=== PATIENT | male | born 1955 | race Caucasian/White ===

== ENCOUNTER 2018-08-14 21:23 | Inpatient (IN) ==
[2018-08-14] MEDS ORDERED: Ipratropium/Albuterol Neb 3 ML IH ONE (21:34)
[2018-08-14] MEDS ORDERED: methylPREDNISolone 125 MG/2 ML VIAL IVP ONE (21:35)
--- NOTE | 2018-08-14 21:41 | Emergency Department Note ---
Disposition Clinical Impression: Acute exacerbation of chronic obstructive airways disease Disposition: Admitted As Inpatient Condition: Fair Time of Disposition: 03:27 General Adult HPI - General Stated complaint: sob Time Seen by Provider: 08/14/18 21:34 Nursing Notes Reviewed: Yes Vital Signs Reviewed: Yes - History of Present Illness HPI Narrative: 63-year-old male with end-stage COPD, on vent with mask at nighttime with 4 L of oxygen presents to the emergency department via EMS with concern for shortness of breath and chest tightness. EMS states they increased his oxygen from 5-8 L en route and had oxygen saturation of 97-100% on it. He was initially tachycardic with a heart rate of 127. Patient states that he is on azithromycin chronically. Reports that he is on steroids recently as well. He denies any fever, does endorse sputum production. Denies any new abdominal pain or nausea, vomiting. He states that it feels like an exacerbation of this COPD. - Related Data Home Medications Medication Instructions Recorded Confirmed Albuterol Sulfate [Proair 90 mcg IH Q4HR 08/15/18 08/15/18 Respiclick] Aspirin [Lo-Dose Aspirin EC] 81 mg PO DAILY 08/15/18 08/15/18 Atorvastatin [Lipitor] 40 mg PO HS 08/15/18 08/15/18 Azithromycin [Zithromax] 250 mg PO DAILY 08/15/18 08/15/18 Budesonide/Formoterol 160/4.5 2 puff IH BIDR 08/15/18 08/15/18 [Symbicort 160/4.5] Dextromethorphan HBr [Tussin Cough] 15 mg PO BID 08/15/18 08/15/18 Esomeprazole Magnesium [Nexium] 40 mg PO DAILY 08/15/18 08/15/18 Fluticasone Propionate Nasal 50 mcg NS BID 08/15/18 08/15/18 [Flonase] GuaiFENesin ER [Mucinex] 600 mg PO BID 08/15/18 08/15/18 Ipratropium/Albuterol Neb [Duoneb] 3 ml IH Q4HR 08/15/18 08/15/18 Loratadine [Claritin] 10 mg PO DAILY 08/15/18 08/15/18 Melatonin 10 mg PO HS 08/15/18 08/15/18 Montelukast [Singulair] 10 mg PO HS 08/15/18 08/15/18 Ondansetron [Zofran ODT] 8 mg SL Q8H 08/15/18 08/15/18 Spiriva Respimat 2.5 mcg IH BID 08/15/18 08/15/18 Allergies Allergy/AdvReac Type Severity Reaction Status Date / Time clarithromycin [From Biaxin] Allergy Hives Verified 08/14/18 21:43 Penicillins Allergy Hives Verified 08/14/18 21:43 All systems ED: reviewed and negative except as stated. Review of Systems: As Per HPI Constitutional: Denies: fever Respiratory: Reports: cough, dyspnea, sputum production Gastrointestinal: Denies: abdominal pain, nausea, vomiting Past Medical History - Past Medical History Attestation: Yes The following information was validated with the patient. Medical history: Reports: COPD Physical Exam - General Limitations: no limitations General appearance: alert, in no apparent distress - Head Head exam: normocephalic - Eye Eye exam: Present: EOMI - ENT ENT exam: mucous membranes moist - Neck Neck exam: Present: trachea midline - Chest Chest inspection: Present: symmetric chest wall rise - Respiratory Respiratory exam: Present: prolonged expiratory phase, other (Decreased breath sounds bilaterally) - Cardiovascular Cardiovascular exam: Present: normal rhythm, tachycardia - Abdominal Exam Abdominal exam: Present: soft, Non-Tender. Absent: distention, guarding, rebound, rigidity - Extremities Exam Extremities exam: Present: normal capillary refill - Back Exam Back exam: Present: full ROM - Neurological Exam Neurological exam: Present: alert, oriented X3 - Psychiatric Psychiatric exam: Present: normal affect, normal mood - Skin Skin exam: Present: warm, dry, intact, normal color. Absent: rash Course Vital Signs Temperature 97.7 F 08/14/18 21:29 Pulse Rate 115 08/14/18 21:29 Respiratory Rate 20 08/14/18 21:29 Blood Pressure 121/84 08/14/18 21:29 O2 Sat by Pulse Oximetry 100 08/14/18 21:29 Temperature 97.7 F 08/14/18 21:29 Pulse Rate 92 08/15/18 02:00 Respiratory Rate 20 08/15/18 01:00 Blood Pressure 103/79 08/15/18 02:00 O2 Sat by Pulse Oximetry 97 08/15/18 02:00 Oxygen Delivery Oxygen Delivery Bipap,Ventilator Medical Decision Making - MDM Narrative Medical decision making narrative: 63-year-old male presents emergency department with concerns for COPD exacerbation. Patient currently stable on his home vent settings. He has decreased breath sounds bilaterally with prolonged expiratory phase and tachycardic. We will give DuoNeb's, steroids obtain chest x-ray, ECG, troponin. Patient felt much better after administration of DuoNeb's. Had a decreased work of breathing and increased aeration. He was on his baseline oxygen afterwards. ECG did not reveal any ischemic ST changes. Troponin was negative. Chest x-ray were no cardiopulmonary abnormality. We do not start and Micronase on this patient as he did not have a leukocytosis, no evidence of pneumonia on chest x- ray, afebrile. Heart rate improved significantly throughout his stay. There was 100 at time of admission. Patient minute to Dr. Valladares for COPD exacerbation in this end-stage COPD patient. Discussion at bedside with family, they agreed with plan. Patient hemodynamically stable time of admission. Chest X-Ray 08/14/18 21:35 IMPRESSION: No acute abnormality detected. D/ / Jesús Collado MD / Jesús Collado MD Interpreting Provider: Jesús Collado MD - Lab Data Result diagrams: 08/14/18 22:05 08/14/18 23:26 Lab Results 08/14/18 08/14/18 08/14/18 Range/Units 22:05 22:05 22:05 WBC 6.0 (4.3-11.1) K/mcL RBC 4.24 (4.19-5.50) M/mcL Hgb 13.4 (12.9-16.9) g/dL Hct 40.4 (37.5-50.1) % MCV 95.3 (83.0-100.0) fL MCH 31.6 (28.0-33.3) pg MCHC 33.2 (31.6-35.5) g/dL RDW 12.7 (11.5-14.5) % Plt Count 149 (140-400) K/mcL MPV 9.8 (9.4-12.4) fL Immature Gran % 1.2 (0-4) % Seg Neutrophils % 61.0 % Lymphocytes % 22.6 % Monocytes % 13.5 % Eosinophils % 1.0 % Basophils % 0.7 % Neutrophils # 3.7 (1.6-8.9) K/mcL Lymphocytes # 1.4 (0.6-4.6) K/mcL Monocytes # 0.8 (0.0-1.3) K/mcL Eosinophils # 0.1 (0.0-0.6) K/mcL Basophils # 0.0 (0.0-0.2) K/mcL Sodium (136-145) mEq/L Potassium (3.5-5.1) mEq/L Chloride (98-107) mEq/L Carbon Dioxide (23-29) mEq/L BUN (8-23) mg/dL Creatinine (0.70-1.30) mg/dL Est GFR ( Amer) (> 60) Est GFR (Non-Af Amer) (> 60) BUN/Creatinine Ratio (6-26) Glucose (70-105) mg/dL Calculated Osmolality (280-300) Calcium (8.6-10.3) mg/dL Troponin I < 0.03 (< 0.04) ng/mL B-Natriuretic Peptide 43 (Less than 100) pg/mL 08/14/18 Range/Units 23:26 WBC (4.3-11.1) K/mcL RBC (4.19-5.50) M/mcL Hgb (12.9-16.9) g/dL Hct (37.5-50.1) % MCV (83.0-100.0) fL MCH (28.0-33.3) pg MCHC (31.6-35.5) g/dL RDW (11.5-14.5) % Plt Count (140-400) K/mcL MPV (9.4-12.4) fL Immature Gran % (0-4) % Seg Neutrophils % % Lymphocytes % % Monocytes % % Eosinophils % % Basophils % % Neutrophils # (1.6-8.9) K/mcL Lymphocytes # (0.6-4.6) K/mcL Monocytes # (0.0-1.3) K/mcL Eosinophils # (0.0-0.6) K/mcL Basophils # (0.0-0.2) K/mcL Sodium 141 (136-145) mEq/L Potassium 4.2 (3.5-5.1) mEq/L Chloride 105 (98-107) mEq/L Carbon Dioxide 30 H (23-29) mEq/L BUN 13 (8-23) mg/dL Creatinine 0.57 L (0.70-1.30) mg/dL Est GFR ( Amer) > 60 (> 60) Est GFR (Non-Af Amer) > 60 (> 60) BUN/Creatinine Ratio 23 (6-26) Glucose 104 (70-105) mg/dL Calculated Osmolality 292 (280-300) Calcium 9.3 (8.6-10.3) mg/dL Troponin I (< 0.04) ng/mL B-Natriuretic Peptide (Less than 100) pg/mL - EKG Data EKG #1 EKG attestation: Yes I reviewed and interpreted this EKG. EKG results narrative: 21:41 Heart rate 106 bpm, NH interval 144 ms, QRS duration 90 ms, QT 337 seconds, right axis deviation. Sinus tachycardia with occasional PVC. No ischemic ST changes.
[2018-08-14 22:16] LABS: Basophils % 0.7 %; Eosinophils # 0.1 K/mcL (0.0-0.6); Hematocrit 40.4 % (37.5-50.1); Hemoglobin 13.4 g/dL (12.9-16.9); Immature Granulocytes % 1.2 % (0-4); Lymphocytes # 1.4 K/mcL (0.6-4.6); Lymphocytes % 22.6 %; Mean Corpuscular HGB Conc 33.2 g/dL (31.6-35.5); Mean Corpuscular Hemoglobin 31.6 pg (28.0-33.3); Mean Corpuscular Volume 95.3 fL (83.0-100.0); Mean Platelet Volume 9.8 fL (9.4-12.4); Monocytes # 0.8 K/mcL (0.0-1.3); Monocytes % 13.5 %; Neutrophils # 3.7 K/mcL (1.6-8.9); Platelet Count 149 K/mcL (140-400); Red Blood Count 4.24 M/mcL (4.19-5.50); Red Cell Distribution Width 12.7 % (11.5-14.5)
[2018-08-14] MEDS ORDERED: 0.9 % Sodium Chloride 1,000 ML IVC ONE (23:42)
--- NOTE | 2018-08-14 23:44 | Emergency Department Note ---
Disposition Clinical Impression: Acute exacerbation of chronic obstructive airways disease Disposition: Admitted As Inpatient Condition: Fair Time of Disposition: 03:27 General Adult HPI - General Chief complaint: ED Shortness of Breath/Dyspnea Stated complaint: sob Time Seen by Provider: 08/14/18 21:34 Source: patient, EMS Limitations: no limitations Nursing Notes Reviewed: Yes Vital Signs Reviewed: Yes - History of Present Illness Pain Scale: 0 - Related Data Home Medications Medication Instructions Recorded Confirmed Albuterol Sulfate [Proair 90 mcg IH Q4HR 08/15/18 08/15/18 Respiclick] Aspirin [Lo-Dose Aspirin EC] 81 mg PO DAILY 08/15/18 08/15/18 Atorvastatin [Lipitor] 40 mg PO HS 08/15/18 08/15/18 Azithromycin [Zithromax] 250 mg PO DAILY 08/15/18 08/15/18 Budesonide/Formoterol 160/4.5 2 puff IH BIDR 08/15/18 08/15/18 [Symbicort 160/4.5] Dextromethorphan HBr [Tussin Cough] 15 mg PO BID 08/15/18 08/15/18 Esomeprazole Magnesium [Nexium] 40 mg PO DAILY 08/15/18 08/15/18 Fluticasone Propionate Nasal 50 mcg NS BID 08/15/18 08/15/18 [Flonase] GuaiFENesin ER [Mucinex] 600 mg PO BID 08/15/18 08/15/18 Ipratropium/Albuterol Neb [Duoneb] 3 ml IH Q4HR 08/15/18 08/15/18 Loratadine [Claritin] 10 mg PO DAILY 08/15/18 08/15/18 Melatonin 10 mg PO HS 08/15/18 08/15/18 Montelukast [Singulair] 10 mg PO HS 08/15/18 08/15/18 Ondansetron [Zofran ODT] 8 mg SL Q8H 08/15/18 08/15/18 Spiriva Respimat 2.5 mcg IH BID 08/15/18 08/15/18 Allergies Allergy/AdvReac Type Severity Reaction Status Date / Time clarithromycin [From Biaxin] Allergy Hives Verified 08/14/18 21:43 Penicillins Allergy Hives Verified 08/14/18 21:43 Constitutional: Denies: fever Respiratory: Reports: cough, dyspnea, sputum production Gastrointestinal: Denies: abdominal pain, nausea, vomiting Past Medical History - Past Medical History Medical history: Reports: COPD Psychiatric history: Reports: no psych history - Social History Smoking Status: Current every day smoker Alcohol use: Reports: none Drug use: Reports: none Physical Exam - General Limitations: no limitations General appearance: alert, in no apparent distress Course Vital Signs Temperature 97.7 F 08/14/18 21:29 Pulse Rate 115 08/14/18 21:29 Respiratory Rate 20 08/14/18 21:29 Blood Pressure 121/84 08/14/18 21:29 O2 Sat by Pulse Oximetry 100 08/14/18 21:29 Temperature 97.7 F 08/14/18 21:29 Pulse Rate 92 08/15/18 02:00 Respiratory Rate 18 08/15/18 03:22 Blood Pressure 103/79 08/15/18 02:00 O2 Sat by Pulse Oximetry 98 08/15/18 03:22 Oxygen Delivery Oxygen Delivery Bipap,Ventilator Medical Decision Making - Lab Data Lab results reviewed: Yes I reviewed the patient's lab results. Result diagrams: 08/14/18 22:05 08/14/18 23:26 Lab Results 08/14/18 08/14/18 08/14/18 Range/Units 22:05 22:05 22:05 WBC 6.0 (4.3-11.1) K/mcL RBC 4.24 (4.19-5.50) M/mcL Hgb 13.4 (12.9-16.9) g/dL Hct 40.4 (37.5-50.1) % MCV 95.3 (83.0-100.0) fL MCH 31.6 (28.0-33.3) pg MCHC 33.2 (31.6-35.5) g/dL RDW 12.7 (11.5-14.5) % Plt Count 149 (140-400) K/mcL MPV 9.8 (9.4-12.4) fL Immature Gran % 1.2 (0-4) % Seg Neutrophils % 61.0 % Lymphocytes % 22.6 % Monocytes % 13.5 % Eosinophils % 1.0 % Basophils % 0.7 % Neutrophils # 3.7 (1.6-8.9) K/mcL Lymphocytes # 1.4 (0.6-4.6) K/mcL Monocytes # 0.8 (0.0-1.3) K/mcL Eosinophils # 0.1 (0.0-0.6) K/mcL Basophils # 0.0 (0.0-0.2) K/mcL Sodium (136-145) mEq/L Potassium (3.5-5.1) mEq/L Chloride (98-107) mEq/L Carbon Dioxide (23-29) mEq/L BUN (8-23) mg/dL Creatinine (0.70-1.30) mg/dL Est GFR ( Amer) (> 60) Est GFR (Non-Af Amer) (> 60) BUN/Creatinine Ratio (6-26) Glucose (70-105) mg/dL Calculated Osmolality (280-300) Calcium (8.6-10.3) mg/dL Troponin I < 0.03 (< 0.04) ng/mL B-Natriuretic Peptide 43 (Less than 100) pg/mL 08/14/18 Range/Units 23:26 WBC (4.3-11.1) K/mcL RBC (4.19-5.50) M/mcL Hgb (12.9-16.9) g/dL Hct (37.5-50.1) % MCV (83.0-100.0) fL MCH (28.0-33.3) pg MCHC (31.6-35.5) g/dL RDW (11.5-14.5) % Plt Count (140-400) K/mcL MPV (9.4-12.4) fL Immature Gran % (0-4) % Seg Neutrophils % % Lymphocytes % % Monocytes % % Eosinophils % % Basophils % % Neutrophils # (1.6-8.9) K/mcL Lymphocytes # (0.6-4.6) K/mcL Monocytes # (0.0-1.3) K/mcL Eosinophils # (0.0-0.6) K/mcL Basophils # (0.0-0.2) K/mcL Sodium 141 (136-145) mEq/L Potassium 4.2 (3.5-5.1) mEq/L Chloride 105 (98-107) mEq/L Carbon Dioxide 30 H (23-29) mEq/L BUN 13 (8-23) mg/dL Creatinine 0.57 L (0.70-1.30) mg/dL Est GFR ( Amer) > 60 (> 60) Est GFR (Non-Af Amer) > 60 (> 60) BUN/Creatinine Ratio 23 (6-26) Glucose 104 (70-105) mg/dL Calculated Osmolality 292 (280-300) Calcium 9.3 (8.6-10.3) mg/dL Troponin I (< 0.04) ng/mL B-Natriuretic Peptide (Less than 100) pg/mL - Radiology Data Radiology results reviewed: Yes I reviewed the patient's radiology results. Chest X-Ray 08/14/18 21:35 IMPRESSION: No acute abnormality detected. D/ / Jesús Collado MD / Jesús Collado MD Interpreting Provider: Jesús Collado MD - EKG Data EKG #1 EKG attestation: Yes I reviewed and interpreted this EKG. EKG results narrative: EKG shows sinus tachycardia with ventricular rate of 106. PVC. No significant ST segment elevation or depression. Attestation Statement - Attestation Attestation: I, Jaquan Sheridan MD, personally evaluated this patient and discussed their management with the resident physician. I reviewed the resident's note and agree with the documented findings, medical decision making, and plan of care. I reviewed the residents documentation and agree with the residents assessment and plan of care. I have personally had face to face time with the patient. I personally supervised and was present for the brewer/critical portions of the following procedures completed by the resident: EKG interpretation. 63-year-old male with history of end-stage COPD and uses a home ventilator device at night and as needed presents to the emergency department with a complaint of increased shortness of breath since about 1830 this evening. Some right sided chest pain with coughing which is chronic. No fever. He has had some increased cough with some thick yellow sputum production. He normally uses 4 L of oxygen and sometimes increases to 5 L when he has increased shortness of breath. EMS reports when they arrived he was on 6 L on his ventilation device and his oxygen saturation was in the low 90s so they increased him to 8 L oxygen and his oxygen saturation improved to the upper 90s. On examination patient is a well-developed well-nourished male in no acute distress. He is alert and oriented 3. There is no cyanosis or diaphoresis. Breath sounds are markedly decreased bilaterally. No definite rales or wheezes heard however very limited breath sounds audible. Heart regular with a mild tachycardia. Abdomen soft and nontender with normal bowel sounds. No pedal edema. EKG shows sinus tachycardia with ventricular rate of 106. PVC. No significant ST segment elevation or depression. Chest x-ray negative. Labs reviewed and unremarkable. Here in the emergency department the patient received triple DuoNeb treatments and IV Solu-Medrol. The hospitalist, Dr. Valladares, was consulted and accepted admission of the patient.
[2018-08-14 23:57] LABS: BUN/Creatinine Ratio 23 (6-26); Blood Urea Nitrogen 13 mg/dL (8-23); Calcium 9.3 mg/dL (8.6-10.3); Carbon Dioxide 30 mEq/L (23-29); Chloride 105 mEq/L (98-107); Glucose 104 mg/dL (70-105); Osmolality,Calculated 292 (280-300); Potassium 4.2 mEq/L (3.5-5.1); Sodium 141 mEq/L (136-145); eGFR For African Americans > 60 (> 60); eGFR For Non-African Americans > 60 (> 60)
[2018-08-15] MEDS ORDERED: Acetaminophen 325 MG TABLET PO PRN (01:40)
--- NOTE | 2018-08-15 02:38 | Internal Med History&Physical ---
Date of Encounter: 08/15/18 Time of Encounter: 02:36 Internal Medicine - H&P: HPI Chief complaint: SOB Admitted From: Home Plans for Post Hospital Care: Home History of present illness: Ivan Peterson is a 63 year old man with chronic hypoxic respiratory failure secondary to severe COPD on home Bipap who was brought to the ER with the complaint of increased dyspnea and chest tightness. No reports of fever, chills were given but has cough has been poorly productive and reports being on chronic azithromycin therapy. He says his inability to expectorate is what leads him to develop shortness of breath and air hunger. CXR was not revealing of an infiltrate. He improved with some nebulizer therapy and is admitted for ongoing care. Vitals: Reviewed General: Emaciated, NAD Skin: Warm, dry. HEENT: Moist mucous membranes. No conjunctivae pallor. Neck: No lymphadenopathy. No JVD. No carotid bruits. No palpable thyroid. Chest: Reduced thoracic expansion. Diminished breath sounds. Heart: Normal S1 & S2; rhythmic. No rubs or murmurs. Abdomen: Non-distended, soft and non-tender to palpation. No peritoneal reaction. Extremities: No clubbing, cyanosis or edema. No calf tenderness. Normal distal pulses. Neurological: Awake, alert and oriented to person, place and time. No focal deficits. Psych: Affect appropriate. Assessment/Plan 1. Acute COPD exacerbation: Will continue q4hr nebulizer therapy in conjunction with systemic steroids. Can continue oral azithromycin and supplemental oxygen as needed. 2. Tobacco dependence: Says he quit 3 days ago. Smoking cessation advised. Nicotine patch provided. 3. CAD: Has a history of 5 stents. On ASA/statin. 4. DVT prophylaxis: SubQ heparin ordered. Past Med Surg Social Fam HX - Past Medical History Medical history: COPD Additional medical history: hypoglyemia Psychiatric history: no psych history - Past Surgical History Additional surgical history: 4 stents - Social History Smoking Status: Current every day smoker Alcohol use: none Drug use: none Internal Medicine - H&P: Meds Allergy/AdvReac Type Severity Reaction Status Date / Time clarithromycin [From Biaxin] Allergy Hives Verified 08/14/18 21:43 Penicillins Allergy Hives Verified 08/14/18 21:43 All Systems PM: A 10-system review of systems was performed and is negative for pertinent findings except as documented above in the HPI. Family history reviewed and found non-contributory. - Constitutional Vitals: Temp Pulse Resp BP Pulse Ox 97.7 F 92 20 103/79 97 08/14/18 21:29 08/15/18 02:00 08/15/18 01:00 08/15/18 02:00 08/15/18 02:00 Exam: . Internal Med - H&P Results - Labs CBC & Chem 7: 08/14/18 22:05 08/14/18 23:26 Labs: Short CBC 08/14/18 Range/Units 22:05 WBC 6.0 (4.3-11.1) K/mcL Hgb 13.4 (12.9-16.9) g/dL Hct 40.4 (37.5-50.1) % Plt Count 149 (140-400) K/mcL Neutrophils # 3.7 (1.6-8.9) K/mcL BMP 08/14/18 23:26 Sodium 141 Potassium 4.2 Chloride 105 Carbon Dioxide 30 H BUN 13 Creatinine 0.57 L Glucose 104 Calcium 9.3 Cardiac Enzymes 08/14/18 Range/Units 22:05 Troponin I < 0.03 (< 0.04) ng/mL - Impressions ITS Impressions Chest X-Ray 08/14/18 21:35 IMPRESSION: No acute abnormality detected. D/ / Jesús Collado MD / Jesús Collado MD Interpreting Provider: Jesús Collado MD - Time Spent With Patient Total time spent is greater than 50% in coordination of care (as documented) at patient's floor/unit and/or counseling patient: Greater than 35 minutes
[2018-08-15] MEDS: Ipratropium/Albuterol Neb 3 ML IH SCH ×6 (03:22→23:50)
[2018-08-15] MEDS: Ondansetron ODT 4 MG TAB.RAPDIS SL SCH ×3 (04:05→18:44)
[2018-08-15] MEDS: *HR* Heparin 5,000 UNIT/ML VIAL SQ SCH ×2 (06:19→18:44)
--- NOTE | 2018-08-15 07:32 | Event Note ---
Date of Encounter: 08/15/18 Time of Encounter: 10:29 Patient with severe COPD here for exacerbation. Trigger includes change in weather. Having difficulty clearing sputum which causes SOB. Denies fevers or chest pain. VS: reviewed, off BIPAP, 4 L NC Gen: mild resp distress, some mild conversational dyspnea, CVS: RRR, lungs: breath sounds very poor, no cyanosis Labs: reviewed, unremarkable 1. COPD exacerbation, continue Prednisone, Duo Nebs, Mucinex. Add chest percussion. 2. Tobacco abuse; currently using nicotine patch 3. CAD: on asa/plavix
[2018-08-15] MEDS: Budesonide/Formoterol 160/4.5 1 PUFF INH IH SCH ×2 (07:33→19:50)
[2018-08-15] MEDS ORDERED: Azithromycin 250 MG TABLET PO SCH (09:00)
[2018-08-15] MEDS ORDERED: Aspirin 81 MG TAB.CHEW PO SCH (09:00)
[2018-08-15] MEDS: Loratadine 10 MG TABLET PO SCH (09:28)
[2018-08-15] MEDS: Aspirin Enteric Coated 81 MG Tablet PO SCH (09:28)
[2018-08-15] MEDS: Azithromycin 250 MG TABLET PO SCH (09:28)
[2018-08-15] MEDS: predniSONE 20 MG TABLET PO SCH (09:28)
[2018-08-15] MEDS: Fluticasone Propionate Nasal 50 MCG/SPRAY BOTTLE NS SCH ×2 (09:28→20:05)
[2018-08-15] MEDS: Dextromethorphan Polistrx(12h) 30 MG/5 ML UDC PO SCH ×3 (11:19→20:03)
--- NOTE | 2018-08-15 14:16 | Electrocardiograph Report ---
[address] [address] Test Date: 2018-08-14 Pat Name: Ivan Peterson Department: [id number] Room: 2A22 Gender: M [employer]: : 1955 Requested By: Golden Irene Order Number: [id number] Reading MD: Elvis Rangel Measurements Intervals [place] Rate: 106 P: 92 MA: 144 QRS: 93 QRSD: 90 T: 5 QT: 337 QTc: 448 Interpretive Statements Sinus tachycardia Ventricular premature complex Possible right atrial enlargement Nonspecific ST-T changes Electronically Signed On 08-15-2018 14:15:09 EDT by Elvis Rangel
[2018-08-15] MEDS ORDERED: Chloraseptic Spray 177 ML BOTTLE MM PRN (16:53)
[2018-08-15] MEDS ORDERED: Melatonin 3 MG TABLET PO SCH (21:00)
[2018-08-16] MEDS: Ondansetron ODT 4 MG TAB.RAPDIS SL SCH (02:52)
[2018-08-16] MEDS: Ipratropium/Albuterol Neb 3 ML IH SCH ×3 (03:32→11:23)
[2018-08-16] MEDS: *HR* Heparin 5,000 UNIT/ML VIAL SQ SCH (05:45)
[2018-08-16 07:03] VITALS: BP 101/58
[2018-08-16] MEDS: Budesonide/Formoterol 160/4.5 1 PUFF INH IH SCH (07:33)
--- NOTE | 2018-08-16 08:03 | Internal Med Progress Note ---
Hospitalist Progress Note - Encounter Date of Encounter: 08/16/18 - Exam Vitals: Temp Pulse Resp BP Pulse Ox 97.7 F 91 18 101/58 97 08/16/18 07:01 08/16/18 07:01 08/16/18 07:01 08/16/18 07:01 08/16/18 07:01 - Time Spent with Patient Total time spent is greater than 50% in coordination of care (as documented) at patient's floor/unit and/or counseling patient: Internal Medicine: Result - Labs CBC & Chem 7: 08/14/18 22:05 08/14/18 23:26 Consult Discharge Plan - Plan Referrals: Lilly Meadows, EXTRUSION OPERATOR [Primary Care Provider] -
[2018-08-16] MEDS: predniSONE 20 MG TABLET PO SCH (08:24)
[2018-08-16] MEDS: Loratadine 10 MG TABLET PO SCH (08:24)
[2018-08-16] MEDS: Azithromycin 250 MG TABLET PO SCH (08:24)
[2018-08-16] MEDS: Aspirin Enteric Coated 81 MG Tablet PO SCH (08:24)
[2018-08-16] MEDS: Dextromethorphan Polistrx(12h) 30 MG/5 ML UDC PO SCH (08:33)
[2018-08-16] MEDS: Fluticasone Propionate Nasal 50 MCG/SPRAY BOTTLE NS SCH (08:35)
--- NOTE | 2018-08-16 09:38 | Discharge Summary ---
- NOTES TO OUTPATIENT PROVIDER Notes to Outpatient Provider: Discussed trying another allergy medication, Claritin appears ineffective. States he is back to his baseline COPD. F/U Pulm in 3 days recommended. We put request to office in. Date of Encounter: 08/16/18 Time of Encounter: 09:36 - Discharge Diagnosis (1) Acute exacerbation of chronic obstructive airways disease Priority: Primary Status: Acute Hospital course: Ivan Peterson is a 63 year old man with chronic hypoxic respiratory failure secondary to severe COPD on home Bipap who was brought to the ER with the complaint of increased dyspnea and chest tightness. No reports of fever, chills were given but has cough has been poorly productive and reports being on chronic azithromycin therapy. He says his inability to expectorate is what leads him to develop shortness of breath and air hunger. CXR was not revealing of an infiltrate. He improved with some nebulizer therapy and is admitted for ongoing care. He was started on scheduled Duo Neb therapy and Prednisone. Patient respiratory status returned to baseline. He is discharged at his respiratory baseline to finish a two week taper of Prednisone with follow-up with Pulmonology in 3 days. - Time Spent with Patient Total time spent providing and/or coordinating discharge services: - Discharge Medications Prescriptions: Continued Budesonide/Formoterol 160/4.5 [Symbicort 160/4.5] 2 puff IH BIDR Spiriva Respimat 2.5 mcg IH BID GuaiFENesin ER [Mucinex] 600 mg PO BID Montelukast [Singulair] 10 mg PO HS Atorvastatin [Lipitor] 40 mg PO HS Azithromycin [Zithromax] 250 mg PO DAILY Ondansetron [Zofran ODT] 8 mg SL Q8H Ipratropium/Albuterol Neb [Duoneb] 3 ml IH Q4HR Melatonin 10 mg PO HS Fluticasone Propionate Nasal [Flonase] 50 mcg NS BID Esomeprazole Magnesium [Nexium] 40 mg PO DAILY Dextromethorphan HBr [Tussin Cough] 15 mg PO BID Aspirin [Lo-Dose Aspirin EC] 81 mg PO DAILY Albuterol Sulfate [Proair Respiclick] 90 mcg IH Q4HR Discontinued Loratadine [Claritin] 10 mg PO DAILY Home Medications: Albuterol Sulfate [Proair Respiclick] 90 mcg IH Q4HR 08/15/18 [History] Aspirin [Lo-Dose Aspirin EC] 81 mg PO DAILY 08/15/18 [History] Atorvastatin [Lipitor] 40 mg PO HS 08/15/18 [History] Azithromycin [Zithromax] 250 mg PO DAILY 08/15/18 [History] Budesonide/Formoterol 160/4.5 [Symbicort 160/4.5] 2 puff IH BIDR 08/15/18 [History] Dextromethorphan HBr [Tussin Cough] 15 mg PO BID 08/15/18 [History] Esomeprazole Magnesium [Nexium] 40 mg PO DAILY 08/15/18 [History] Fluticasone Propionate Nasal [Flonase] 50 mcg NS BID 08/15/18 [History] GuaiFENesin ER [Mucinex] 600 mg PO BID 08/15/18 [History] Ipratropium/Albuterol Neb [Duoneb] 3 ml IH Q4HR 08/15/18 [History] Melatonin 10 mg PO HS 08/15/18 [History] Montelukast [Singulair] 10 mg PO HS 08/15/18 [History] Ondansetron [Zofran ODT] 8 mg SL Q8H 08/15/18 [History] Spiriva Respimat 2.5 mcg IH BID 08/15/18 [History] Cetirizine HCl [Zyrtec] 10 mg PO DAILY #30 tablet 08/16/18 [Rx] predniSONE [PredniSONE] 10 mg PO DAILY #40 tablet 08/16/18 [Rx] Allergies/Adverse Reactions: Allergy/AdvReac Type Severity Reaction Status Date / Time clarithromycin [From Biaxin] Allergy Hives Verified 08/14/18 21:43 Penicillins Allergy Hives Verified 08/14/18 21:43 Date of admission: 08/15/18 16:35 Primary care physician: Lilly Meadows CNP Consults: 08/15/18 02:37 Consult to Spanish Instructor [CONS] Routine Reason for SW Consult: Oxygen at home - Constitutional Vitals: Temp Pulse Resp BP Pulse Ox 97.7 F 91 16 101/58 96 08/16/18 07:01 08/16/18 07:01 08/16/18 07:34 08/16/18 07:01 08/16/18 07:34 Exam: General: NAD, Skin: Warm, dry. HEENT: Moist mucous membranes. No conjunctivae pallor. Neck: No lymphadenopathy. No JVD. No carotid bruits. No palpable thyroid. Chest: Reduced thoracic expansion. Diminished breath sounds. Heart: Normal S1 & S2; rhythmic. No rubs or murmurs. Abdomen: Non-distended, soft and non-tender to palpation. Extremities: No clubbing, cyanosis or edema. No calf tenderness. Normal distal pulses. Neurological: No focal deficits. Psych: Affect appropriate. - Patient Status Disposition: Home, Self-Care Condition: Fair Functional capacity at discharge: independent ambulation (Can only walk less than 10 feet at baseline.) - Discharge Instructions Follow Up With: Lilly Meadows NEUROLOGY EPILEPSY PHYSICIAN [Primary Care Provider] - - Diet and Activity Activity: increase activity as tolerated Diet: advance to your usual diet
[2018-08-16] MEDS ORDERED: Acetylcysteine 10% 2 ML INHSOL IH ONE (09:42)
== END 2018-08-16 11:58 | disposition home or self-care (01) | DRG 140 ==
LOC: 2ANU 21:23 → EMEROOARM 21:23 → SUATTDRO 08-15 01:08 → 2ANU 08-15 02:12
PROVIDERS: ADMIT Internal Medicine; ATTEND Student in an Organized Health Care Education/Training Program

== ENCOUNTER 2018-12-04 12:44 | Observation (INO) ==
[2018-12-04] MEDS ORDERED: methylPREDNISolone 125 MG/2 ML VIAL IVP ONE (12:56)
[2018-12-04] MEDS ORDERED: Ipratropium/Albuterol Neb 3 ML IH ONE (12:56)
[2018-12-04 13:10] LABS: ABG Base Excess 18 mEq/L (-2 to 3); ABG HCO3 51 mEq/L (21-27); ABG Oxygen Saturation 83 % (95-98); ABG PCO2 104 mmHg (35-45); ABG PO2 58 mmHg (85-104); ABG TCO2 > 50 mEq/L (20-26)
[2018-12-04 13:33] LABS: Basophils % 0.2 %; Eosinophils # 0.1 K/mcL (0.0-0.6); Eosinophils % 0.7 %; Hematocrit 47.4 % (37.5-50.1); Hemoglobin 14.3 g/dL (12.9-16.9); Immature Granulocytes % 0.5 % (0-4); Lymphocytes # 1.5 K/mcL (0.6-4.6); Lymphocytes % 15.3 %; Mean Corpuscular HGB Conc 30.2 g/dL (31.6-35.5); Mean Corpuscular Hemoglobin 31.8 pg (28.0-33.3); Mean Corpuscular Volume 105.6 fL (83.0-100.0); Mean Platelet Volume 10.1 fL (9.4-12.4); Monocytes # 1.1 K/mcL (0.0-1.3); Monocytes % 11.3 %; Neutrophils # 6.9 K/mcL (1.6-8.9); Platelet Count 156 K/mcL (140-400); Red Blood Count 4.49 M/mcL (4.19-5.50); White Blood Count 9.6 K/mcL (4.3-11.1)
[2018-12-04 14:23] LABS: Troponin I < 0.03 ng/mL (< 0.04)
[2018-12-04 14:55] LABS: BUN/Creatinine Ratio 27 (6-26); Blood Urea Nitrogen 14 mg/dL (8-23); Calcium 9.2 mg/dL (8.6-10.3); Carbon Dioxide > 45 mEq/L (23-29); Chloride 90 mEq/L (98-107); Glucose 135 mg/dL (70-105); Osmolality,Calculated 305 (280-300); Sodium 146 mEq/L (136-145); eGFR For African Americans > 60 (> 60); eGFR For Non-African Americans > 60 (> 60)
[2018-12-04 15:17] LABS: VBG HCO3 52 mEq/L (21-27); VBG PCO2 78 mmHg (41-51); VBG PH 7.43 pH Units (7.32-7.42); VBG PO2 60 mmHg (25-50)
[2018-12-04] MEDS ORDERED: Naloxone 0.4 MG/ML INJ IVP PRN (17:16)
[2018-12-04] MEDS ORDERED: Albuterol 2.5 MG/3 ML NEBULIZER IH PRN (17:19)
[2018-12-04] MEDS ORDERED: Ondansetron ODT 4 MG TAB.RAPDIS SL SCH (17:30)
[2018-12-04] MEDS: *HR* Heparin 5,000 UNIT/ML VIAL SQ SCH (18:54)
[2018-12-04] MEDS ORDERED: Ipratropium/Albuterol Neb 3 ML IH SCH (20:00)
[2018-12-04] MEDS: Budesonide Neb 0.5 MG/2 ML IH SCH (20:36)
[2018-12-04] MEDS ORDERED: Melatonin 3 MG TABLET PO SCH (21:00)
[2018-12-04] MEDS ORDERED: *HR* Promethazine 25 MG/ML VIAL IVP PRN (21:21)
[2018-12-04] MEDS ORDERED: levoFLOXacin 750 MG/150 ML 750 MG/150 ML BAG IVPB SCH (21:30)
[2018-12-04] MEDS: Dextromethorphan Polistrx(12h) 30 MG/5 ML UDC PO SCH (21:42)
[2018-12-04 21:45] LABS: ABG Base Excess 19 mEq/L (-2 to 3); ABG HCO3 50 mEq/L (21-27); ABG Oxygen Saturation 82 % (95-98); ABG PCO2 91 mmHg (35-45); ABG PH 7.35 pH Units (7.32-7.45); ABG PO2 53 mmHg (85-104); ABG TCO2 > 50 mEq/L (20-26)
[2018-12-04] MEDS: methylPREDNISolone 125 MG/2 ML VIAL IVP SCH (23:10)
[2018-12-04] MEDS: Levalbuterol Neb 1.25 MG/3 ML IH SCH (23:57)
[2018-12-05] MEDS: Levalbuterol Neb 1.25 MG/3 ML IH SCH ×4 (03:50→15:36)
[2018-12-05 04:18] LABS: Hematocrit 40.9 % (37.5-50.1); Hemoglobin 12.9 g/dL (12.9-16.9); Mean Corpuscular HGB Conc 31.5 g/dL (31.6-35.5); Mean Corpuscular Hemoglobin 32.2 pg (28.0-33.3); Mean Platelet Volume 10.1 fL (9.4-12.4); Platelet Count 144 K/mcL (140-400); Red Blood Count 4.01 M/mcL (4.19-5.50); Red Cell Distribution Width 11.9 % (11.5-14.5); White Blood Count 6.2 K/mcL (4.3-11.1)
[2018-12-05 04:40] LABS: BUN/Creatinine Ratio 29 (6-26); Blood Urea Nitrogen 15 mg/dL (8-23); Calcium 9.6 mg/dL (8.6-10.3); Carbon Dioxide > 45 mEq/L (23-29); Chloride 89 mEq/L (98-107); Glucose 132 mg/dL (70-105); Osmolality,Calculated 287 (280-300); Sodium 137 mEq/L (136-145); eGFR For African Americans > 60 (> 60); eGFR For Non-African Americans > 60 (> 60)
[2018-12-05] MEDS: *HR* Heparin 5,000 UNIT/ML VIAL SQ SCH (05:23)
[2018-12-05] MEDS: Budesonide Neb 0.5 MG/2 ML IH SCH (07:17)
[2018-12-05] MEDS ORDERED: Loratadine 10 MG TABLET PO SCH (09:00)
[2018-12-05] MEDS ORDERED: Azithromycin 250 MG TABLET PO SCH (09:00)
[2018-12-05] MEDS ORDERED: Aspirin Enteric Coated 81 MG Tablet PO SCH (09:00)
[2018-12-05] MEDS: methylPREDNISolone 125 MG/2 ML VIAL IVP SCH (09:28)
[2018-12-05 11:10] LABS: ABG Base Excess 18 mEq/L (-2 to 3); ABG HCO3 47 mEq/L (21-27); ABG Oxygen Saturation 96 % (95-98); ABG PCO2 83 mmHg (35-45); ABG PH 7.36 pH Units (7.32-7.45); ABG PO2 88 mmHg (85-104); ABG TCO2 50 mEq/L (20-26)
[2018-12-05] MEDS ORDERED: *HR* LORazepam 0.5 MG TABLET PO PRN (12:17)
[2018-12-05] MEDS ORDERED: Mag Hydrox/Al Hydrox/Simeth 30 ML UDC PO PRN (12:17)
[2018-12-05] MEDS ORDERED: Acetaminophen 650 MG RECTAL SUPP RC PRN (12:17)
[2018-12-05] MEDS ORDERED: Morphine Sulfate Oral CONC 10 MG/0.5 ML ORAL.SYG PO PRN (12:17)
[2018-12-05] MEDS: Dextromethorphan Polistrx(12h) 30 MG/5 ML UDC PO SCH (12:36)
[2018-12-05 15:27] VITALS: BP 113/86
[2018-12-05] MEDS ORDERED: Loratadine/Pseudophed (12 HR) 1 EACH TABLET PO SCH (21:00)
[2018-12-05] MEDS ORDERED: levoFLOXacin 750 MG/150 ML 750 MG/150 ML BAG IVPB SCH (21:00)
== END 2018-12-05 16:42 | disposition hospice, home (50) ==
LOC: 2NENU 12:44 → EMEROOARM 12:44 → SUATTDRO 14:40 → 2NENU 16:15
PROVIDERS: ADMIT Family Medicine; ATTEND Family Medicine

== ENCOUNTER 2019-03-06 10:12 | Inpatient (IN) ==
[2019-03-06] MEDS ORDERED: methylPREDNISolone 125 MG/2 ML VIAL IVP ONE (10:25)
[2019-03-06] MEDS ORDERED: Ipratropium/Albuterol Neb 3 ML IH ONE (10:25)
[2019-03-06 10:46] LABS: Hematocrit 40.3 % (37.5-50.1); Hemoglobin 13.5 g/dL (12.9-16.9); Mean Corpuscular HGB Conc 33.5 g/dL (31.6-35.5); Mean Corpuscular Hemoglobin 32.5 pg (28.0-33.3); Mean Corpuscular Volume 97.1 fL (83.0-100.0); Mean Platelet Volume 10.6 fL (9.4-12.4); Platelet Count 161 K/mcL (140-400); Red Blood Count 4.15 M/mcL (4.19-5.50); Red Cell Distribution Width 11.8 % (11.5-14.5); White Blood Count 7.9 K/mcL (4.3-11.1)
[2019-03-06 11:07] LABS: VBG HCO3 53 mEq/L (21-27); VBG PCO2 101 mmHg (41-51); VBG PH 7.33 pH Units (7.32-7.42); VBG PO2 141 mmHg (25-50)
[2019-03-06 11:16] LABS: Alanine Aminotransferase 28 Units/L (7-52); Albumin 4.5 g/dL (3.5-5.7); Alkaline Phosphatase 41 Units/L (34-104); Aspartate Amino Transferase 20 Units/L (13-39); BUN/Creatinine Ratio 23 (6-26); Bilirubin,Total 0.3 mg/dL (0.3-1.0); Blood Urea Nitrogen 11 mg/dL (8-23); Carbon Dioxide > 45 mEq/L (23-29); Chloride 83 mEq/L (98-107); Globulin 2.2 g/dL (2.4-3.5); Glucose 160 mg/dL (70-105); Osmolality,Calculated 289 (280-300); Sodium 138 mEq/L (136-145); Total Protein 6.7 g/dL (6.4-8.9); Troponin I < 0.03 ng/mL (< 0.04); eGFR For African Americans > 60 (> 60); eGFR For Non-African Americans > 60 (> 60)
[2019-03-06] MEDS ORDERED: Naloxone 0.4 MG/ML INJ IVP PRN (12:21)
[2019-03-06] MEDS ORDERED: Ondansetron 4 MG/2 ML VIAL IVP PRN (12:21)
[2019-03-06] MEDS ORDERED: Acetaminophen 325 MG TABLET PO PRN (12:21)
[2019-03-06] MEDS ORDERED: Azithromycin 500 MG in 0.9 % Sodium Chloride 250 ML IVPB SCH (13:00)
[2019-03-06] MEDS ORDERED: Isovue-370 500 ML BOTTLE IVP ONE (13:31)
[2019-03-06] MEDS ORDERED: levoFLOXacin 750 MG/150 ML 750 MG/150 ML BAG IVPB SCH (14:00)
[2019-03-06 14:14] LABS: ABG Base Excess > 30 mEq/L (-2 to 3); ABG HCO3 66 mEq/L (21-27); ABG Oxygen Saturation 90 % (95-98); ABG PCO2 98 mmHg (35-45); ABG PH 7.44 pH Units (7.32-7.45); ABG PO2 65 mmHg (85-104); ABG TCO2 > 50 mEq/L (20-26)
[2019-03-06] MEDS: Ipratropium/Albuterol Neb 3 ML IH SCH ×2 (15:51→19:58)
[2019-03-06] MEDS: MethylPREDNISolone 40 MG/ML VIAL IVP SCH ×2 (16:58→23:17)
[2019-03-06] MEDS ORDERED: MethylPREDNISolone 40 MG/ML VIAL IVP SCH (18:00)
[2019-03-06 19:33] LABS: Adenovirus Not Detected (Not Detect); Bordetella Pertussis Not Detected (Not Detect); Chlamydophila pneumoniae Not Detected (Not Detect); Coronavirus 229E Not Detected (Not Detect); Coronavirus HKU1 Not Detected (Not Detect); Coronavirus NL63 Not Detected (Not Detect); Coronavirus OC43 Not Detected (Not Detect); Human Metapneumovirus Not Detected (Not Detect); Human Rhinovirus/Enterovirus Not Detected (Not Detect); Influenza A Subtype 2009 H1 Not Detected (Not Detect); Influenza B Not Detected (Not Detect); Mycoplasma pneumoniae Not Detected (Not Detect); Parainfluenza Virus 1 Not Detected (Not Detect); Parainfluenza Virus 2 Not Detected (Not Detect); Parainfluenza Virus 3 Not Detected (Not Detect); Parainfluenza Virus 4 Not Detected (Not Detect); Respiratory Syncytial Virus Not Detected (Not Detect)
[2019-03-06] MEDS: Budesonide/Formoterol 160/4.5 1 PUFF INH IH SCH (19:58)
[2019-03-06] MEDS: Melatonin 3 MG TABLET PO SCH (20:22)
[2019-03-07] MEDS: Ipratropium/Albuterol Neb 3 ML IH SCH ×7 (00:06→23:43)
[2019-03-07 04:18] LABS: Basophils % 0.3 %; Hematocrit 39.5 % (37.5-50.1); Hemoglobin 12.9 g/dL (12.9-16.9); Immature Granulocytes % 0.5 % (0-4); Lymphocytes # 0.4 K/mcL (0.6-4.6); Lymphocytes % 5.9 %; Mean Corpuscular HGB Conc 32.7 g/dL (31.6-35.5); Mean Corpuscular Hemoglobin 32.3 pg (28.0-33.3); Monocytes # 0.3 K/mcL (0.0-1.3); Monocytes % 4.9 %; Neutrophils # 5.4 K/mcL (1.6-8.9); Platelet Count 163 K/mcL (140-400); Red Blood Count 3.99 M/mcL (4.19-5.50); Red Cell Distribution Width 11.6 % (11.5-14.5); Segmented Neutrophils % 88.4 %; White Blood Count 6.1 K/mcL (4.3-11.1)
[2019-03-07 04:45] LABS: BUN/Creatinine Ratio 24 (6-26); Blood Urea Nitrogen 11 mg/dL (8-23); Carbon Dioxide > 45 mEq/L (23-29); Chloride 85 mEq/L (98-107); Glucose 136 mg/dL (70-105); Magnesium 1.8 mg/dL (1.6-2.6); Osmolality,Calculated 285 (280-300); Phosphorous 3.5 mg/dL (2.7-4.5); Potassium 4.3 mEq/L (3.5-5.1); Sodium 137 mEq/L (136-145); eGFR For African Americans > 60 (> 60); eGFR For Non-African Americans > 60 (> 60)
[2019-03-07] MEDS: Budesonide/Formoterol 160/4.5 1 PUFF INH IH SCH ×2 (07:57→19:37)
[2019-03-07] MEDS: Aspirin Enteric Coated 81 MG Tablet PO SCH (09:31)
[2019-03-07] MEDS: MethylPREDNISolone 40 MG/ML VIAL IVP SCH (09:31)
[2019-03-07] MEDS: Furosemide 20 MG TABLET PO SCH (09:31)
[2019-03-07 11:48] LABS: ABG Base Excess 24 mEq/L (-2 to 3); ABG HCO3 56 mEq/L (21-27); ABG Oxygen Saturation 90 % (95-98); ABG PCO2 96 mmHg (35-45); ABG PH 7.37 pH Units (7.32-7.45); ABG PO2 67 mmHg (85-104); ABG TCO2 > 50 mEq/L (20-26)
[2019-03-07] MEDS: levoFLOXacin 500 MG TABLET PO SCH (14:55)
[2019-03-07] MEDS: *HR* Enoxaparin 40 MG/0.4 ML SYRINGE SQ SCH (14:55)
[2019-03-07] MEDS ORDERED: MethylPREDNISolone 40 MG/ML VIAL IVP ONE (16:00)
[2019-03-07] MEDS: Melatonin 3 MG TABLET PO SCH (20:17)
[2019-03-08] MEDS: Ipratropium/Albuterol Neb 3 ML IH SCH ×2 (04:02→07:21)
[2019-03-08 05:38] LABS: Bilirubin,Urine Negative (Negative); Blood,Urine Small (Negative); Clarity,Urine Cloudy (Clear); Color,Urine Yellow (Yellow); Glucose,Urine (UA) Normal (Normal); Ketones,Urine Negative (Negative); Leukocyte Esterase,Urine Negative (Negative); Nitrite,Urine Negative (Negative); PH,Urine 6.5 pH Units (5.0-8.0); Protein,Urine Negative (Neg-Trace); Specific Gravity,Urine 1.017 (1.010-1.025); Urobilinogen,Urine Normal (Normal)
[2019-03-08 05:41] LABS: Bacteria,Urine None Seen per hpf (None-Few); Hyaline Casts,Urine None Seen per lpf (None-Few); RBC,Urine 0-3 per hpf (0-3); Squamous Epithelial Cell,Urine Few per lpf (None-Few); WBC,Urine 0-3 per hpf (0-3)
[2019-03-08 06:51] VITALS: BP 138/84
[2019-03-08] MEDS: Budesonide/Formoterol 160/4.5 1 PUFF INH IH SCH (07:21)
[2019-03-08] MEDS: levoFLOXacin 500 MG TABLET PO SCH (08:52)
[2019-03-08] MEDS: Aspirin Enteric Coated 81 MG Tablet PO SCH (08:52)
[2019-03-08] MEDS: Furosemide 20 MG TABLET PO SCH (08:52)
[2019-03-08] MEDS: *HR* Enoxaparin 40 MG/0.4 ML SYRINGE SQ SCH (08:52)
[2019-03-08] MEDS ORDERED: predniSONE 20 MG TABLET PO SCH (09:00)
[2019-03-08 10:24] LABS: Estimated Average Glucose 128 mg/dl
== END 2019-03-08 11:28 | disposition hospice, home (50) | DRG 140 ==
LOC: 3BNU 10:12 → EMEROOARM 10:12 → SUATTDRO 13:23 → 3BNU 14:58
PROVIDERS: ADMIT Internal Medicine; ATTEND Internal Medicine